=== PATIENT | female | born 1980 | race Asian ===

== ENCOUNTER 2018-10-07 22:12 | Emergency (ER) | payer MEDICAID, OTHER ==
[~2018-10-07] VITALS: Ht 154.9 cm; Wt 54.0 kg
[~2018-10-07 22:12] MED LIST: NO HOME MEDS
[2018-10-07 22:13] VITALS: BP 128/84
== END 2018-10-07 23:27 ==
LOC: ER 22:12
DX: S60.021A Contusion of right index finger without damage to nail, initial encounter (principal); Z98.51 Tubal ligation status; Z98.890 Other specified postprocedural states; V89.2XXA Person injured in unspecified motor-vehicle accident, traffic, initial encounter; Y93.89 Activity, other specified; Y92.410 Unspecified street and highway as the place of occurrence of the external cause; Y99.8 Other external cause status
CPT/HCPCS: 99283